=== PATIENT | female | born 1980 ===

== ENCOUNTER 2019-06-15 17:49 | Emergency (ER) | payer OTHER ==
[~2019-06-15] VITALS: Ht 162.6 cm; Wt 73.1 kg
[2019-06-15 17:54] VITALS: BP 129/85
--- NOTE | 2019-06-15 19:27 | NUR ---
patient [email or web address] signed form.
== END 2019-06-15 19:29 ==
LOC: ED 19:23
DX: R12 Heartburn (principal); R11.2 Nausea with vomiting, unspecified; Z53.21 Procedure and treatment not carried out due to patient leaving prior to being seen by health care provider